=== PATIENT | female | born 1950 | race Caucasian/White ===

== ENCOUNTER 2017-05-13 09:29 | Emergency (ER) | payer SELFPAY ==
[~2017-05-13] VITALS: Ht 165.1 cm; Wt 69.5 kg
[2017-05-13 09:33] VITALS: Ht 165.1 cm; Wt 69.5 kg
[2017-05-13] MEDS ORDERED: IBUPROFEN 600 MG TAB PO ONE (10:30)
--- NOTE | 2017-05-13 11:15 | RADRPT ---
PROCEDURE: XR, lumbosacral spine. CLINICAL INDICATION: Back pain. TECHNIQUE: 3 views of the lumbar spine were obtained. COMPARISON: No prior studies are available for comparison. FINDINGS: There is multilevel mild degenerative osteoarthritis of the facets. There is multilevel minimal dege nerative spondylosis with minimal anterolateral osteophytosis. There is preservation of the normal l umbar lordosis. There is normal vertebral alignment. No fracture or subluxation is seen. The vert ebral heights are well maintained. The sacroiliac joints are normal. The soft tissues appear thuan l. IMPRESSION: 1. 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 2. Multilevel minimal degenerative spondylosis with minimal anterolateral osteophytosis. RPTAT: GG .Jovanny Delgado MD, Date Time Electronically viewed and signed by .Jovanny Delgado MD, on 05/13/2017 11:15 .Y/
[2017-05-13 11:50] LABS: ADD UMIC NO; UR ASCORBIC ACID NEGATIVE (NEGATIVE); UR BILIRUBIN (Dip) NEGATIVE (NEGATIVE); UR BLOOD (Dip) NEGATIVE (NEGATIVE); UR CLARITY SLIGHTLY CLOUDY (CLEAR); UR COLOR YELLOW (YELLOW); UR GLUCOSE (Dip) NEGATIVE (NEGATIVE); UR KETONES (Dip) NEGATIVE (NEGATIVE); UR LEUKOCYTE ESTERASE (Dip) NEGATIVE Leu/ul (NEGATIVE); UR NITRITE (Dip) NEGATIVE (NEGATIVE); UR RBC 1 /HPF (0-5); UR SPECIFIC GRAVITY (Dip) 1.012 (1.003-1.030); UR SQUAMOUS EPITHELIAL CELL FEW /HPF (FEW); UR TOTAL PROTEIN (Dip) NEGATIVE (NEGATIVE); UR UROBILINOGEN (Dip) NEGATIVE (NEGATIVE)
[2017-05-13] MEDS ORDERED: TRAM50TA2 PO (11:56)
[2017-05-13] MEDS ORDERED: NAPR-260 PO (11:56)
[2017-05-13] MEDS ORDERED: HYDROCODONE/APAP (5/325) TAB PO ONE (12:30)
--- NOTE | 2017-05-13 16:50 | ERD ---
ER Documentation Chief Complaint Date/Time DATE: 05/13/17 TIME: 16:46 Chief Complaint Complains of back pain x 3 days HPI This is a 66-year-old female presents to the ER with lower back pain that started 3 days ago. Patient states that lower back pain is severe and constant is worse whenever she walks. Patient has not had any trauma to the back. She denies any urinary or bowel incontinence. She denies any saddle like anesthesia. She denies any fevers or chills. Patient has a past medical history of hypertension states that her blood pressure has been elevated lately , and she is worried about this. Patient however denies any chest pain, shortness of breath, vision changes. Patient denies any urinary frequency, dysuria, hematuria she denies any flank pain or abdominal pain. ROS 12 point review of systems was done, all negative except per HPI. Medications Home Meds Active Scripts Tramadol HCl (Tramadol HCl) 50 Mg Tablet, 50 MG PO Q4 Y for PAIN, #20 TAB Prov:NAT ESPINOZA 05/13/17 Naproxen* (Naprosyn*) 500 Mg Tablet, 500 MG PO BID Y for PAIN AND/OR INFLAMMATION, #30 TAB Prov:NAT ESPINOZA 05/13/17 PMhx/Soc History of Surgery: No Anesthesia Reaction: No Hx Neurological Disorder: No Hx Respiratory Disorders: No Hx Cardiac Disorders: Yes (htn) Hx Psychiatric Problems: No Hx Miscellaneous Medical Probl: No Hx Alcohol Use: No Hx Substance Use: No Hx Tobacco Use: No Physical Exam Vitals Vital Signs Date Time Temp Pulse Resp B/P Pulse Ox O2 Delivery O2 Flow Rate FiO2 05/13/17 09:33 98.7 82 20 188/88 98 Physical Exam GENERAL: The patient is well developed and appropriate for usual state of health , in no apparent distress. NECK: C-spine is soft and supple. There is no cervical lymphadenopathy. CHEST: Clear to auscultation bilaterally. There are no rales, wheezes or rhonchi. HEART: Regular rate and rhythm. No murmurs, clicks, rubs or gallops. ABDOMEN: Soft, nontender and nondistended. Good bowel sounds. No rebound or guarding. No gross peritonitis. No gross organomegaly or masses. No Vázquez sign or McBurney point tenderness. No pulsatile abdominal mass. BACK: No midline or flank tenderness. Tender to palpation from L1-L3. Tense paraspinal muscles. Negative leg raise test. No step- offs. EXTREMITIES: Equal pulses bilaterally. There is no peripheral clubbing, cyanosis or edema. No focal swelling or erythema. Full range of motion. Grossly neurovascularly intact. NEURO: Alert and oriented. Cranial nerves II through XII are intact. Motor strength in all 4 extremities with 5/5 strength. Sensation grossly intact. Normal speech and gait. SKIN: There is no apparent rash or petechia. The skin is warm and dry. Results 24 hrs Laboratory Tests Test 05/13/17 10:15 Urine Color YELLOW Urine Clarity SLIGHTLY CLOUDY Urine pH 5.0 Urine Specific [place] 1.012 Urine Ketones NEGATIVEmg/dL Urine Nitrite NEGATIVEmg/dL Urine Bilirubin NEGATIVEmg/dL Urine Urobilinogen NEGATIVEmg/dL Urine Leukocyte Esterase NEGATIVELeu/ul Urine Microscopic RBC 1/HPF Urine Microscopic WBC 1/HPF Urine Squamous Epithelial Cells FEW/HPF Urine Hemoglobin NEGATIVEmg/dL Urine Glucose NEGATIVEmg/dL Urine Total Protein NEGATIVEmg/dl Current Medications Medications (Trade) Dose Ordered Sig/Trudy Route PRN Reason Start Time Stop Time Status Last Admin Dose Admin Ibuprofen (Motrin) 600 mg ONCE ONCE PO 05/13/17 10:30 05/13/17 10:31 DC 05/13/17 10:32 Acetaminophen/ Hydrocodone Bitart ([place] (5/325)) 1 tab ONCE ONCE PO 05/13/17 12:30 05/13/17 12:30 DC 05/13/17 12:11 Procedures/MDM Differential Diagnosis includes but is not limited to back strain, vertebral fracture, epidural abscess, cauda equina, herniated disc, AAA rupture, kidney stones, UTI, pyelonephritis. Patient's back pain is unknown, however there is no evidence of fracture dislocation. Patient did have some osteoarthritis which is likely a chronic condition. Suspicion for infectious etiology is low as patient is afebrile and extremely well-appearing. Is able to ambulate in the ER without any pain. Suspicion for pyelonephritis or UTI is low as patient' s urine was completely normal. I doubt nephrolithiasis. I doubt AAA rupture. Patient's blood pressure was elevated in the ER, however she does not have hypertensive emergency or urgency. She eventually needs to follow-up with her primary care doctor regarding her blood pressure as he has not been in. Patient needs to follow-up with her PCP within 1-2 days return to ER sooner if symptoms worsen. My medical decision making sure with the patient she understands and agrees with plan. Departure Diagnosis: Primary Impression: Back pain Condition: Stable Patient Instructions: Back Pain (Acute Or Chronic) Additional Instructions: Call your primary care doctor TOMORROW for an appointment during the next 1-2 days.See the doctor sooner or return here if your condition worsens before your appointment time. NAT ESPINOZA May 13, 2017 16:49
== END 2017-05-13 12:21 | disposition home or self-care (01) ==
LOC: FTE 09:29
DX: M54.5 Low back pain (principal); I10 Essential (primary) hypertension
CPT/HCPCS: 72100; 81001; 81003